=== PATIENT | female | born 1970 | race Hispanic/Latino ===

== ENCOUNTER 2022-03-19 06:21 | Emergency (ER) | payer OTHER, SELFPAY ==
[2022-03-19] MEDS ORDERED: Ketorolac Tromethamine 30 MG/ML VIAL ONE (06:40)
== END 2022-03-19 07:42 | disposition home or self-care (01) ==
LOC: ERS 06:21
DX: S29.012A Strain of muscle and tendon of back wall of thorax, initial encounter (principal); S20.219A Contusion of unspecified front wall of thorax, initial encounter; J45.909 Unspecified asthma, uncomplicated; Z79.899 Other long term (current) drug therapy; V49.9XXA Car occupant (driver) (passenger) injured in unspecified traffic accident, initial encounter
CPT/HCPCS: 71045; 96372; J1885

== ENCOUNTER 2023-08-31 08:08 | Emergency (ER) | payer SELFPAY ==
[2023-08-31] MEDS ORDERED: Ibuprofen 200 MG TAB ONE (09:44)
== END 2023-08-31 09:56 | disposition home or self-care (01) ==
LOC: ERS 08:08
DX: J20.9 Acute bronchitis, unspecified (principal)
CPT/HCPCS: 71045; 93005